=== PATIENT | female | born 1950 | race Caucasian/White ===

== ENCOUNTER 2020-08-24 11:30 | Emergency (ER) | payer MEDICARE, OTHER ==
[2020-08-24] MEDS ORDERED: PROVENTIL HFA6.7 GM INH (12:07)
== END 2020-08-24 12:13 | disposition home or self-care (01) ==
LOC: ER1 11:30
DX: Z77.098 Contact with and (suspected) exposure to other hazardous, chiefly nonmedicinal, chemicals (principal); I10 Essential (primary) hypertension; Z90.710 Acquired absence of both cervix and uterus
CPT/HCPCS: 99282